=== PATIENT | male | born 1965 | race Caucasian/White ===

== ENCOUNTER 2019-09-30 12:57 | Outpatient (CLI) | payer OTHER | END 2019-09-30 12:58 | disposition home or self-care (01) | PROVIDERS: ATTEND Internal Medicine | DX: R06.02 Shortness of breath (principal) | CPT/HCPCS: 93017 ==

== ENCOUNTER 2020-02-18 13:59 | Outpatient (CLI) | payer OTHER ==
--- NOTE | 2020-02-18 16:59 | ULT ---
Renal sonogram HISTORY: Pain. Renal stone. FINDINGS: Right kidney measures up to 13.6 cm length with a slightly lobular cortical margin. A 1.9 c m cortical cyst is present at the inferior pole. No solid mass or stone evident. Left kidney is left kidney is 13.8 cm. Minimal distention of the inferior pole collecting system. Caleb cifications not visible sonographically. Urinary bladder is unremarkable. Minimal post void urinary bladder residual. IMPRESSION : Very mild distention of the inferior pole collecting system of the left kidney. If there is ongoing c oncern regarding possibility of left urinary tract obstruction, please consider CT exam. Small right renal cyst.
== END 2020-02-18 14:00 | disposition home or self-care (01) ==
LOC: BICULT 13:59
PROVIDERS: ATTEND Urology
DX: N20.0 Calculus of kidney (principal); N28.1 Cyst of kidney, acquired; N28.89 Other specified disorders of kidney and ureter
CPT/HCPCS: 76770

== ENCOUNTER 2021-02-20 10:51 | Outpatient (CLI) | payer OTHER | END 2021-02-20 10:52 | disposition home or self-care (01) | LOC: BICULT 10:51 | PROVIDERS: ATTEND Urology | DX: N20.0 Calculus of kidney (principal); N28.1 Cyst of kidney, acquired | CPT/HCPCS: 76770 ==

== ENCOUNTER 2021-10-30 11:53 | Outpatient (CLI) | payer OTHER | END 2021-10-30 11:54 | disposition home or self-care (01) | LOC: BICRAD 11:53 | PROVIDERS: ATTEND Family Medicine | DX: M53.3 Sacrococcygeal disorders, not elsewhere classified (principal); M47.816 Spondylosis without myelopathy or radiculopathy, lumbar region; S32.9XXA Fracture of unspecified parts of lumbosacral spine and pelvis, initial encounter for closed fracture | CPT/HCPCS: 72100; 72202 ==

== ENCOUNTER 2021-11-08 08:07 | Outpatient (CLI) | payer OTHER | END 2021-11-08 08:08 | disposition home or self-care (01) | LOC: BICMAMMO 08:07 | PROVIDERS: ATTEND Family Medicine | DX: N63.12 Unspecified lump in the right breast, upper inner quadrant (principal) | CPT/HCPCS: 77066; G0279 ==

== ENCOUNTER 2023-03-18 16:05 | Outpatient (CLI) | payer OTHER | END 2023-03-18 16:06 | disposition home or self-care (01) | LOC: BICRAD 16:05 | PROVIDERS: ATTEND Family Medicine | DX: M79.18 Myalgia, other site (principal); M25.852 Other specified joint disorders, left hip; M46.1 Sacroiliitis, not elsewhere classified; M89.8X8 Other specified disorders of bone, other site | CPT/HCPCS: 72202 ==

== ENCOUNTER 2023-05-06 13:58 | Outpatient (CLI) | payer OTHER | END 2023-05-06 13:59 | disposition home or self-care (01) | LOC: CT 13:58 | PROVIDERS: ATTEND Family Medicine | DX: Z12.2 Encounter for screening for malignant neoplasm of respiratory organs (principal); F17.210 Nicotine dependence, cigarettes, uncomplicated | CPT/HCPCS: 71271 ==